=== PATIENT | female | born 1955 | race Caucasian/White ===

== ENCOUNTER 2021-04-01 09:05 | Emergency (ER) | payer OTHER ==
[~2021-04-01 09:05] MED LIST: ASPIRIN EC81 MG PO; CLONAZEPAM 1MG T1 MG PO; GLUCOPHAGE1000 MG PO; LIPITOR 10MG TA10 MG PO; LIPITOR40 MG PO; LORTAB 5-325 M1 EACH PO; NORVASC5 MG PO; OMEGA-31000 MG PO; SYNTHROID50 MCG PO; SYNTHROID88 MCG PO; TOPROL XL 25MG25 MG PO; TOPROL XL 50 MG50 MG PO; VITAMIN B-121000 MC1 PO; WELLBUTRIN XL150 MG PO
[2021-04-01] MEDS ORDERED: CLONAZEPAM0.5 MG PO (09:44)
== END 2021-04-01 09:50 | disposition home or self-care (01) ==
LOC: FER 09:05
DX: F41.9 Anxiety disorder, unspecified (principal); Z88.2 Allergy status to sulfonamides
CPT/HCPCS: 99283